=== PATIENT | female | born 1945 | race Asian ===

== ENCOUNTER 2019-04-14 08:52 | Emergency (ER) | payer SELFPAY ==
[~2019-04-14] VITALS: Ht 121.9 cm; Wt 56.8 kg
[2019-04-14] MEDS ORDERED: ondansetron/PF 4mg/2ml inj IV ONE (09:00)
[2019-04-14] MEDS ORDERED: normal saline 1000ML IV soln IVB ONE ×2 (09:00→10:40)
[2019-04-14 09:31] LABS: BASOPHILS % (AUTO) 0.5 % (0-1); EOSINOPHILS # (AUTO) 0.1 X10'3 (0-0.9); EOSINOPHILS % (AUTO) 1.3 % (0-6); HEMATOCRIT 44.2 % (35.0-45.0); HEMOGLOBIN 14.7 g/dl (12.0-16.0); LYMPHOCYTES # (AUTO) 1.7 X10'3 (1.1-4.8); LYMPHOCYTES % (AUTO) 24.3 % (21-51); MEAN CORPUSCULAR HEMOGLOBIN 30.5 PG (27.0-31.0); MEAN CORPUSCULAR HGB CONC 33.3 g/dL (33.0-36.5); MEAN CORPUSCULAR VOLUME 91.4 FL (78-98); MEAN PLATELET VOLUME 7.6 FL (7.4-10.4); MONOCYTES # (AUTO) 0.5 X10'3 (0-0.9); MONOCYTES % (AUTO) 7.3 % (2-12); NEUTROPHILS # (AUTO) 4.6 X10'3 (1.8-7.7); NEUTROPHILS % (AUTO) 66.6 % (42-75); PLATELET COUNT 176 X10'3 (140-440); RED BLOOD COUNT 4.84 X10'6 (4.20-5.60); WHITE BLOOD COUNT 6.8 X10'3 (4.5-11.0)
[2019-04-14] MEDS ORDERED: morphine 4 MG/ML inj SYRINge IV ONE (09:35)
[2019-04-14 09:47] LABS: ALANINE AMINOTRANSFERASE 53 U/L (12-78); ALBUMIN 3.4 G/DL (3.4-5.0); ALBUMIN/GLOBULIN RATIO 0.8 (1.1-1.5); ALKALINE PHOSPHATASE 89 IU/L (46-116); ANION GAP 8 (8-16); ASPARTATE AMINO TRANSFERASE 23 U/L (10-37); BILIRUBIN,TOTAL 0.4 MG/DL (0.1-1.0); BLOOD UREA NITROGEN 13 MG/DL (7-18); BUN/CREATININE RATIO 15.5 (6.6-38.0); CALCIUM 8.6 MG/DL (8.5-10.1); CHLORIDE 108 MMOL/L (99-107); CREATININE 0.84 MG/DL (0.40-0.90); GLUCOSE 144 MG/DL (70-104); POTASSIUM 3.7 MMOL/L (3.5-5.1); SODIUM 144 MMOL/L (135-145); TOTAL CARBON DIOXIDE 27.8 MMOL/L (24-32); TOTAL PROTEIN 7.5 G/DL (6.4-8.2); eGFR 66 ML/MIN
[2019-04-14 09:52] LABS: LIPASE 140 U/L (73-393); TROPONIN I < 0.04 NG/ML (0.0-0.05)
[2019-04-14] MEDS ORDERED: iohexol 350MG/ML 100ml bottle IV ONE ×2 (10:08→10:40)
[2019-04-14] MEDS ORDERED: PANT-47 PO (11:15)
[2019-04-14 11:17] LABS: CLARITY,URINE CLEAR (Clear); COLOR,URINE STRAW (Yellow); GLUCOSE, URINE NEGATIVE (Neg); KETONES,URINE NEGATIVE (Neg); LEUKOCYTE ESTERASE ,URINE NEGATIVE (Neg); NITRITES, URINE NEGATIVE (Neg); OCCULT BLOOD,URINE TRACE-INTACT (Neg); PROTEIN,URINE NEGATIVE (Neg); UROBILINOGEN,URINE 0.2 E.U/dL (0.2-1.0)
[2019-04-14 11:21] LABS: UA COLLECTION TYPE CLN CATCH MIDSTREAM
[2019-04-14 11:22] LABS: BACTERIA,URINE FEW /HPF (Neg); MUCUS STRANDS FEW /LPF (Neg); RBC,URINE 0-2 /HPF (0-2); SQUAMOUS EPITHELIAL CELL,UR MANY /LPF (FEW)
[2019-04-14 11:23] LABS: WBC,URINE 0-4 /HPF (0-4)
[2019-04-14 12:18] VITALS: BP 138/87
== END 2019-04-14 12:21 | disposition home or self-care (01) ==
LOC: ER 08:53
DX: R10.13 Epigastric pain (principal); R07.89 Other chest pain; Z79.899 Other long term (current) drug therapy
CPT/HCPCS: 36415; 71045; 71275; 74174; 80053; 81001; 83690; 84484; 85025; 93005; 96374; 96375; 99284; J2270; J2405; J7030; Q9967